=== PATIENT | female | born 2000 | race Caucasian/White ===

== ENCOUNTER 2018-01-03 16:44 | Emergency (ER) | payer SELFPAY ==
[~2018-01-03] VITALS: Ht 170.2 cm; Wt 71.7 kg
[~2018-01-03 16:44] MED LIST: BACTRIM,SEPT1 TABLET PO; CEFDINIR300 MG PO; NAPROSYN500 MG PO; ULTRACET1 TABLET PO
[2018-01-03 18:47] VITALS: BP 98/66
== END 2018-01-03 18:51 | disposition home or self-care (01) ==
LOC: EME 16:44 → EXP 16:44
DX: J02.0 Streptococcal pharyngitis (principal); R51 Headache
CPT/HCPCS: 87651 90; 99281; 99284; J0561